=== PATIENT | male | born 1970 | race Caucasian/White ===

== ENCOUNTER 2016-12-27 07:34 | Day surgery (SDC) | payer BC ==
[2016-12-24 12:43] VITALS: BMI 25.7
[2016-12-27] MEDS ORDERED: EPINEPHrine 1:1,000 1 MG/1 ML - 30ML VIAL (INJECTION) ONE (08:06)
[2016-12-27] MEDS ORDERED: ROPIVACAINE HCL 0.5% 30ML VIAL ONE (08:17)
[2016-12-27] MEDS ORDERED: PROPOFOL 20 ML ONE ×4 (08:29→10:59)
[2016-12-27] MEDS ORDERED: ceFAZolin SODIUM 1 GM VIAL ONE (09:21)
[2016-12-27] MEDS ORDERED: ONDANSETRON 4 MG/2 ML VIAL IVPUSH PRN (11:30)
[2016-12-27] MEDS ORDERED: LACTATED RINGERS SOLUTION 1,000 ML IV SCH (11:30)
[2016-12-27] MEDS ORDERED: oxyCODONE HCL 5 MG TABLET ONE ×2 (15:28→16:56)
[2016-12-27] MEDS: oxyCODONE HCL 5 MG TABLET PO PRN ×2 (15:30→17:00)
[2016-12-27 17:08] VITALS: TEMP 98.1
[2016-12-27 18:57] VITALS: BP 124/75; PULSE 60
--- NOTE | 2016-12-28 12:05 | OP ---
DATE OF OPERATION: 12/27/2016 PREOPERATIVE DIAGNOSIS: Left knee anterior cruciate ligament tear, bucket handle medial meniscal tear. POSTOPERATIVE DIAGNOSIS: Left knee anterior cruciate ligament tear, bucket handle medial meniscal tear and lateral meniscus tear. PROCEDURE PERFORMED: Left knee arthroscopy, partial medial and partial lateral meniscectomy, anterior cruciate ligament reconstruction with allograft. SURGEON: Jarrell Patrick MD SEMICONDUCTOR DIES LOADER: Kathi Johnstoneney, whose skillful assistance was necessary for the safe and timely performance of the procedure. Ms. Bernard was able to provide limb positioning, drive the camera, assist in the insertion of orthopedic hardware, as well as graft preparation. ANESTHESIA: Spinal plus regional. CONDITION: Postoperative condition stable. COMPLICATIONS: None. TOURNIQUET TIME: 95 minutes. IMPLANTS: [employer] TightRope x2. INDICATIONS: This is a pleasant 46-year-old gentleman who suffered an ACL rupture. Treatment options, including nonoperative versus operative management, were discussed. Operative risks were reviewed in detail, including bleeding, infection, neurovascular injury, need for further surgery, postoperative pain and stiffness, re-rupture, recurrent instability. We reviewed medical risks, such as heart attack, stroke, DVT, PE and . We reviewed the postoperative rehabilitation repercussions. We reviewed the option of meniscus repair, which would have roughly a 20% to 30% rate of re-tearing, and also would slow down his rehabilitation, risks of meniscal debridement. Given the patient's desire to return to sports and work as fast as possible, he elected for debridement as opposed to repair. In addition, we discussed the option of autograft versus allograft. After a thorough review of the graft choices, he elected for allograft. All of the patient's and his 's questions were addressed. They voiced understanding and elected to proceed. It should also be noted we discussed DVT and antibiotic perioperative prophylaxis. DESCRIPTION OF PROCEDURE: The patient was brought to the operating room after the administration of a regional block in the preoperative holding area. The left lower extremity was then prepped and draped in the usual sterile fashion. A preoperative dose of antibiotics was given, and the usual time-out procedure was performed. At this point, the knee was examined. There was positive Stephanie and positive pivot shift. There was mild effusion. There was a 5-degree loss of full extension. The portal sites were now marked out. The limb was exsanguinated and the tourniquet was inflated to 250 mmHg. The lateral portal was now established using an 11 blade. The arthroscope was passed into the knee. Examination of the patellofemoral joint demonstrated no abnormalities. Passing the arthroscope down to the notch demonstrated a complete rupture of the ACL. A bucket-handle medial meniscal tear was noted as well. A medial portal was now established under spinal needle localization. It should be noted that concurrently, graft preparation was started on the back table. This was a tibialis anterior graft, and after preparation onto the 2 TightRopes in the GraftLink configuration, the graft measured 65 x 11.5 mm in diameter. The inside of the knee was now examined on the medial side. The meniscus tear extended from near the root region, extending to the anterior body-horn junction. Utilizing biter as well as a shaver, this was debrided down to a stable base. It should also be noted that there was a large radial component in the posterior portion of the meniscus, which would have rendered meniscus repair a poor choice here. The tibial and femoral cartilage surfaces did demonstrate some fraying and streak wear, consistent with the bucket-handle tear. Passing the arthroscope now into the lateral compartment, the lateral meniscus was seen to have a tear of the inner third and the mid-portion of the body. This was debrided down using meniscal biters and a shaver as well. The ACL remnant was now debrided using the shaver as well as electrocautery. At this point, the lateral portal was enlarged to allow for later graft passage. The camera was now placed in the medial portal. The femoral drill guide was inserted into the knee. The drill guide was inserted at the anatomic arch under the ACL and the femur. Trocar was now inserted through a small incision laterally down to the level of the bone. The trocar was inserted to the level of the femoral cortex. The FlipCutter device was now drilled into the knee. FlipCutter placement was confirmed visually and was satisfactory. The FlipCutter was now toggled, and a 30-mm by 11.5 socket was created. A passing suture was placed, and the trocar was removed. Attention was now turned to the tibial side. Here, the guide was centered in the tibial footprint. A small incision was made over the anterior aspect of the tibia and the trocar was passed down to the level of the bone. The FlipCutter device was now drilled into the tibial footprint. Again here, placement was confirmed visually and was satisfactory. The FlipCutter was now toggled, and a 40 mm x 11.5 socket was created on this side. Passing sutures were then placed, and the trocar was removed. At this point, graft passage was initiated. The sutures were passed through the femoral socket and the TightRope was passed through under direct visualization through the aperture of the femoral socket. Under direct visualization, the button was flipped and firm tension was applied to the graft to ensure adequate fixation. The sutures were now toggled to insert 15 mm of the graft into the femoral socket. It should be noted that prior to passage of the graft, a notchplasty was performed in order to facilitate better motion for the graft, as the notch was quite stenotic anteriorly. The tibial side sutures were now passed and the graft was seated into the tibial side. The knee was now cycled several times. It was then placed in a position of 20-degrees of flexion on the table. The tibial button was loaded onto the TightRope device. The TightRope device was now toggled. A Stephanie maneuver was now performed and it was found to be stable. At this point, the excess sutures were cut and tied. The subcutaneous tissue was approximated using 2-0 Vicryl. The skin was closed using 3-0 nylon. A compressive dressing was placed. The tourniquet was let down after 95 minutes. The patient was placed into a knee brace in full extension. He was transferred to the recovery room in stable condition. Stephon [id number]
== END 2016-12-27 18:40 | disposition home or self-care (01) ==
LOC: FASU 07:34
PROVIDERS: ATTEND Orthopaedic Surgery Sports Medicine
PROC: 0MQP4ZZ Repair Left Knee Bursa and Ligament, Percutaneous Endoscopic Approach (ICD-10-PCS; 2016-12-27)
PROC: 0SBD4ZZ Excision of Left Knee Joint, Percutaneous Endoscopic Approach (ICD-10-PCS; principal; 2016-12-27 09:36)
DX: S83.512A Sprain of anterior cruciate ligament of left knee, initial encounter (principal); S83.212A Bucket-handle tear of medial meniscus, current injury, left knee, initial encounter; S83.282A Other tear of lateral meniscus, current injury, left knee, initial encounter; X58.XXXA Exposure to other specified factors, initial encounter; Y93.9 Activity, unspecified; Y92.9 Unspecified place or not applicable
CPT/HCPCS: 94760

== ENCOUNTER 2022-08-19 16:49 | Emergency (ER) | payer BC ==
[2022-08-19 16:57] VITALS: BP 155/97; PULSE 66; RESP 18; TEMP 97.8; BMI 28.2
[2022-08-19] MEDS ORDERED: KETOROLAC TROMETHAMINE 30 MG/1 ML VIAL IM ONE (17:07)
[2022-08-19] MEDS ORDERED: diazePAM 5 MG TABLET PO ONE (17:08)
[2022-08-19] MEDS ORDERED: diazePAM 5 MG TABLET ONE (17:10)
[2022-08-19] MEDS ORDERED: KETOROLAC TROMETHAMINE 30 MG/1 ML VIAL ONE (17:10)
[2022-08-19] MEDS ORDERED: LIDOCAINE 5% TOPICAL PATCH ONE (17:32)
[2022-08-19] MEDS ORDERED: LIDOCAINE 5% TOPICAL PATCH TP ONE (17:32)
[2022-08-19] MEDS ORDERED: LIDOCAINE PATCH REMOVAL MC SCH (22:00)
== END 2022-08-19 17:40 | disposition home or self-care (01) ==
LOC: FER 16:49
PROC: 3E0233Z Introduction of Anti-inflammatory into Muscle, Percutaneous Approach (ICD-10-PCS; principal; 2022-08-19)
DX: S39.012A Strain of muscle, fascia and tendon of lower back, initial encounter (principal); X50.1XXA Overexertion from prolonged static or awkward postures, initial encounter
CPT/HCPCS: 99284-25